=== PATIENT | female | born 1980 | race Caucasian/White ===

== ENCOUNTER 2017-06-24 08:26 | Emergency (ER) | payer OTHER ==
[2017-06-24] MEDS ORDERED: KETOROLAC 60 MG/2 ML VIAL IVP STA (08:34)
[2017-06-24] MEDS ORDERED: SODIUM CHLORIDE 0.9% 1,000 ML IV ONE ×2 (08:34→10:24)
--- NOTE | 2017-06-24 08:37 | ED Physician Documentation ---
PD HPI BACK PAIN - Stated complaint Stated Complaint: BACK PX - History obtained from History obtained from: Patient - History of Present Illness Timing - onset: Today Timing - duration: Hours Timing - details: Abrupt onset, Still present Pain level max: 9 Pain level now: 5 Location: Mid, Left Quality: Pain, Spasm, Sharp Associated symptoms: No: Fever, Weakness, Numbness Improves with: Other (nothing) Worsened by: Other (gas) Contributing factors: Other (nothing) Similar symptoms before: Has not had sx before Recently seen: Not recently seen - Additional information Additional information: 37-year-old female was in bed early this morning she got up to go to the bathroom when she developed severe sudden onset of left mid back pain. Pain was so severe she called 911. She has not had this pain previously and was not injured or having pain prior to this. Review of Systems Constitutional: denies: Fever Eyes: denies: Decreased vision Ears: denies: Ear pain Nose: denies: Congestion Throat: denies: Sore throat Cardiac: denies: Chest pain / pressure, Palpitations Respiratory: denies: Dyspnea, Cough GI: denies: Abdominal Pain, Nausea, Vomiting, Constipation, Diarrhea : denies: Dysuria Skin: denies: Rash Musculoskeletal: reports: Back pain. denies: Neck pain, Extremity pain PD PAST MEDICAL HISTORY - Present Medications Home Medications: Ambulatory Orders Medication Instructions Recorded Confirmed traMADol [Ultram] 50 - 100 mg PO Q6H PRN #20 tablet 06/24/17 - Allergies Allergies/Adverse Reactions: Allergies Allergy/AdvReac Type Severity Reaction Status Date / Time acetaminophen Allergy Respiratory Verified 06/24/17 08:37 [From Darvocet-N] hydrocodone Allergy Respiratory Verified 06/24/17 08:37 oxycodone Allergy Respiratory Verified 06/24/17 08:37 propoxyphene Allergy Respiratory Verified 06/24/17 08:37 [From Darvocet-N] PD ED PE NORMAL - Vitals Vital signs reviewed: Yes - General General: Alert and oriented X 3, Well developed/nourished, Other (has manufacturer agent tone of pain control ) - HEENT HEENT: Atraumatic, PERRL - Neck Neck: Supple, no meningeal sign - Cardiac Cardiac: RRR, No murmur - Respiratory Respiratory: No respiratory distress, Clear bilaterally - Abdomen Abdomen: Soft, Non tender - Back Back: No spinal TTP, Other (There is some mild point tenderness to the left paraspinous muscles at the L2 level. ) - Derm Derm: Normal color, Warm and dry, No rash - Extremities Extremities: No deformity, No tenderness to palpate, No edema - Neuro Neuro: No motor deficit, No sensory deficit Eye Opening: Spontaneous Motor: Obeys Commands Verbal: Oriented GCS Score: 15 - Psych Psych: Normal mood, Normal affect Results - Vitals Vitals: Vital Signs - 24 hr 06/24/17 06/24/17 08:34 11:47 Temperature 36.6 C 36.9 C Heart Rate 68 57 L Respiratory 14 18 Rate Blood Pressure 114/61 102/46 L O2 Saturation 100 99 Oxygen O2 Source Room air - Labs Labs: Laboratory Tests 06/24/17 06/24/17 06/24/17 09:00 09:00 10:54 WBC 7.7 RBC 4.36 Hgb 13.4 Hct 40.1 MCV 92.0 MCH 30.6 MCHC 33.3 RDW 12.7 Plt Count 198 MPV 9.5 Neut # 5.2 Lymph # 1.8 [place]ill # 0.5 Eos # 0.1 Baso # 0.0 Absolute Nucleated RBC 0.00 Nucleated RBC % 0.0 Sodium 140 Potassium 4.2 Chloride 104 Carbon Dioxide 27 Anion Gap 9.0 BUN 16 Creatinine 1.0 Estimated GFR (MDRD) 63 L Glucose 94 Calcium 9.3 Total Bilirubin 0.3 AST 21 ALT 20 Alkaline Phosphatase 54 Total Protein 7.8 Albumin 4.5 Globulin 3.3 Albumin/Globulin Ratio 1.4 Lipase 17 L Urine Color YELLOW Urine Clarity CLEAR Urine pH 6.5 Ur Specific [place] 1.015 Urine Protein NEGATIVE Urine Glucose (UA) NEGATIVE Urine Ketones NEGATIVE Urine Occult Blood LARGE H Urine Nitrite NEGATIVE Urine Bilirubin NEGATIVE Urine Urobilinogen 0.2 (NORMAL) Ur Leukocyte Esterase NEGATIVE Urine RBC 6-10 H Urine WBC 0-3 Ur Squamous Epith Cells FEW Squamous Urine Bacteria Rare Ur Microscopic Review INDICATED Urine Culture Comments NOT INDICATED Urine HCG, Qual NEGATIVE Procedures - Bedside sono Bedside sono by EMP: With use of bedside ultrasound the left flank is imaged and there is evidence of hydronephrosis to a left kidney which is sonographically nontender PD MEDICAL DECISION MAKING - ED course Complexity details: reviewed old records, reviewed results, re-evaluated patient , considered differential, d/w patient, d/w family ED course: 37-year-old female with acute onset of severe back pain is able to move around without exacerbating the pain and on bedside exam initially in the emergency department while she was having pain she did have evidence of hydronephrosis. She was administered saline and Toradol and when she got to the CT scan her pain was mostly better and there was no evidence of stone throughout the tract. She did have a solitary 1 mm stone in the left kidney. I suspect she may have passed a stone and she is having some waves of modulated pain. I discussed the findings with the patient and her and relate the expectation that she has resolution of this pain. We did find some blood in the urine. Departure - Departure Disposition: 01 Home, Self Care Clinical Impression: Left flank pain Condition: Stable Instructions: ED Flank Pain Uncertain Cause Follow-Up: KERVIN Santos [Provider Group] Prescriptions: traMADol [Ultram] 50 - 100 mg PO Q6H PRN #20 tablet PRN Reason: Pain Or Fever > 38c (100.4f) Comments: Today it appears from our findings that you have passed a kidney stone. This is all consistent with your history and physical examination. We did not find this stone on the CT scan today. We expect your symptoms to resolve completely. Discharge Date/Time: 06/24/17 12:08
[2017-06-24 09:14] LABS: BASOPHILS % (AUTO) 0.6 %; EOSINOPHILS # (AUTO) 0.1 10^3/uL (0.0-0.7); EOSINOPHILS % (AUTO) 1.1 %; HGB - HEMOGLOBIN 13.4 g/dL (12.0-16.0); LYMPHOCYTES # (AUTO) 1.8 10^3/uL (1.5-3.5); LYMPHOCYTES % (AUTO) 23.9 %; MEAN CORPUSCULAR HEMOGLOBIN 30.6 pg (27.0-31.0); MEAN CORPUSCULAR HGB CONC 33.3 g/dL (32.0-36.0); MEAN PLATELET VOLUME 9.5 fL (7.9-10.8); MONOCYTES # (AUTO) 0.5 10^3/uL (0.0-1.0); MONOCYTES % (AUTO) 5.9 %; NEUTROPHILS # (AUTO) 5.2 10^3/uL (1.5-6.6); NEUTROPHILS % (AUTO) 68.5 %; PLT - PLATELET COUNT 198 10^3/uL (130-450); RED BLOOD COUNT 4.36 10^6/uL (4.20-5.40); RED CELL DISTRIBUTION WIDTH 12.7 % (12.0-15.0); WHITE BLOOD COUNT 7.7 x10^3/uL (4.8-10.8)
[2017-06-24 09:26] LABS: ALBUMIN 4.5 g/dL (3.2-5.5); ALBUMIN/GLOBULIN RATIO 1.4 (1.0-2.2); BILIRUBIN,TOTAL 0.3 mg/dL (0.2-1.0); CALCIUM 9.3 mg/dL (8.5-10.3); TOTAL PROTEIN 7.8 g/dL (6.7-8.2)
--- NOTE | 2017-06-24 09:33 | CT Report ---
EXAM: CT ABDOMEN AND PELVIS (CT KUB) EXAM DATE: 06/24/2017 09:19 AM. CLINICAL HISTORY: Left flank pain . COMPARISONS: None. TECHNIQUE: Routine axial helical CT imaging was performed through the abdomen and pelvis without IV c ontrast. Reconstructions: Coronal and sagittal. In accordance with CT protocol optimization, one or more of the following dose reduction techniques w ere utilized for this exam: automated exposure control, adjustment of mA and/or KV based on patient s ize, or use of iterative reconstructive technique. FINDINGS: Lung Bases: Unremarkable. Right Kidney/Ureter: No stones, hydronephrosis, or hydroureter. No perinephric fat stranding. Left Kidney/Ureter: There is a 1 mm nonobstructing stone in the left kidney. No hydronephrosis or hyd roureter. Other Solid Organs: Noncontrast images of the solid organs are grossly unremarkable. Gallbladder/Bile Ducts: Unremarkable. Peritoneal Cavity: No free fluid, free air or hernandez adenopathy. Bowel is grossly unremarkable. Pelvic Organs: No bladder stones or wall thickening. Noncontrast images of the visualized pelvic orga ns are unremarkable. Vasculature: Unremarkable. Other: Multiple phleboliths in the pelvis. IMPRESSION: 1. There is a nonobstructing 1 mm stone in the inferior pole of the left kidney. No hydronephrosis or hydroureter. No stones in the bladder. 2. No bowel obstruction or inflammatory process associated with the bowel. [facility] Referring Provider Line: [phone] SITE ID: [id number]
--- NOTE | 2017-06-24 09:33 | CT Preliminary Report ---
Exam: CT ABDOMEN/PELVIS W/O IMPRESSION: 1. There is a nonobstructing 1 mm stone in the inferior pole of the left kidney. No hydronephrosis or hydroureter. No stones in the bladder. 2. No bowel obstruction or inflammatory process associated with the bowel. [facility] SITE ID: [id number]
[2017-06-24 11:03] LABS: BILIRUBIN,URINE NEGATIVE (NEGATIVE); GLUCOSE, URINE (UA) NEGATIVE (NEGATIVE); KETONES,URINE (UA) NEGATIVE (NEGATIVE); LEUKOCYTE ESTERASE, URINE NEGATIVE (NEGATIVE); NITRITE,URINE NEGATIVE (NEGATIVE); OCCULT BLOOD,URINE LARGE (NEGATIVE); PH,URINE 6.5 PH (5.0-7.5); PROTEIN,URINE NEGATIVE (NEGATIVE); UROBILINOGEN,URINE 0.2 (NORMAL) E.U./dL (NORMAL)
[2017-06-24 11:05] LABS: CLARITY,URINE CLEAR (CLEAR)
[2017-06-24 11:06] LABS: HCG UR QUAL NEGATIVE
[2017-06-24 11:15] LABS: BACTERIA,URINE Rare /HPF (None Seen); SQUAMOUS EPITHELIAL CELL,UR FEW Squamous (<= Few)
[2017-06-24 11:48] VITALS: BP 102/46
== END 2017-06-24 12:08 | disposition home or self-care (01) ==
LOC: ED 08:26
DX: R10.9 Unspecified abdominal pain (principal); N20.0 Calculus of kidney; N13.30 Unspecified hydronephrosis
CPT/HCPCS: 36415; 74176; 80053; 81001; 81003; 81025; 83690; 85025; 87086; 96361; 96374; 99284

== ENCOUNTER 2019-04-05 21:22 | Outpatient (CLI) | payer OTHER | END 2019-04-05 21:23 | disposition critical access hospital (66) | LOC: EMS 21:22 | PROVIDERS: ATTEND Surgery | DX: R40.20 Unspecified coma (principal) | CPT/HCPCS: A0425; A0427 ==

== ENCOUNTER 2019-04-05 21:41 | Emergency (ER) | payer OTHER ==
--- NOTE | 2019-04-05 21:54 | ED Physician Documentation ---
History of Present Illness - Stated complaint Stated Complaint: AMS, FELL FROM CHAIR - Additonal information Additional information: This is a 39-year-old female history of depression, who presents via EMS after an episode of syncope. Patient reportedly was using marijuana earlier in the night and she did drink some alcohol, she was sitting on a chair when she complained of being dizzy and she went unconscious. She was caught by a friend, and she did not hit her head. EMS was called and when they arrived she was breathing spontaneously, she has some spontaneous movement of her extremities, but would not follow commands. She is given 2 mg of Narcan with no effect. Review of Systems Unable to obtain: Unresponsive PD PAST MEDICAL HISTORY - Past Medical History Psych: Depression Musculoskeletal: Chronic back pain - Past Surgical History Past Surgical History: No - Present Medications Home Medications: Ambulatory Orders Medication Instructions Recorded Confirmed traMADol [Ultram] 50 - 100 mg PO Q6H PRN #20 tablet 06/24/17 - Allergies Allergies/Adverse Reactions: Allergies Allergy/AdvReac Type Severity Reaction Status Date / Time acetaminophen Allergy Respiratory Verified 04/05/19 21:57 [From Darvocet-N] hydrocodone Allergy Respiratory Verified 04/05/19 21:57 oxycodone Allergy Respiratory Verified 04/05/19 21:57 propoxyphene Allergy Respiratory Verified 04/05/19 21:57 [From Darvocet-N] - Living Situation Living Arrangement: reports: At home - Social History Does the pt smoke?: No Smoking Status: Never smoker Does the pt drink ETOH?: Yes ETOH Use: Beer Substance Use and Type: Marijuana - POLST Patient has POLST: No PD ED PE NORMAL - General General: Other (Unconscious, does not respond to questions.) - HEENT HEENT: Atraumatic, PERRL, Other (When I try to open patient's eyes, she closes them tightly and fights me.) - Neck Neck: Other (No step-offs, no signs of external trauma.) - Cardiac Cardiac: Other (Sinus tachycardia on the monitor, regular rhythm.) - Respiratory Respiratory: No respiratory distress, Clear bilaterally, Other (Breathing spontaneously without support, normal rate of breathing) - Abdomen Abdomen: Non tender, Non distended - Female Female : Other (Normal external genitalia, chaperoned by RN) - Back Back: Other (No signs of external trauma, no step-offs) - Derm Derm: Normal color, No rash - Extremities Extremities: No deformity - Neuro Neuro: Other (Patient is unconscious, her pupils are equal and reactive, and when I try to open her eyes she closes them tightly. With nailbed pressure she will withdraw in all 4 extremities, she does not follow commands. She is breathing spontaneously. There is non-extinguisgins clonus on the RLE, there were 10 beats of clonus in the left lower extremity. Babinski's are downgoing bilaterally.) Results - Vitals Vitals: Vital Signs - 24 hr 04/05/19 04/05/19 04/05/19 21:45 22:07 22:15 Temperature 36.3 C L Heart Rate 112 H 115 H 107 H Respiratory 13 19 12 Rate Blood Pressure 116/56 L 140/82 H 118/75 O2 Saturation 100 100 97 04/05/19 04/05/19 04/05/19 22:35 22:47 22:55 Temperature Heart Rate 99 103 H 93 Respiratory 16 16 14 Rate Blood Pressure 113/67 118/61 115/70 O2 Saturation 100 100 98 04/05/19 04/05/19 04/06/19 23:00 23:30 00:03 Temperature Heart Rate 87 86 74 Respiratory 16 16 14 Rate Blood Pressure 114/67 110/65 100/59 L O2 Saturation 100 99 97 04/06/19 04/06/19 04/06/19 00:58 01:23 01:30 Temperature Heart Rate 74 75 69 Respiratory 18 16 16 Rate Blood Pressure 111/72 101/59 L 102/56 L O2 Saturation 97 96 97 04/06/19 04/06/19 04/06/19 02:00 02:30 03:21 Temperature Heart Rate 69 73 72 Respiratory 15 15 16 Rate Blood Pressure 102/62 98/57 L 95/60 O2 Saturation 96 96 97 Oxygen O2 Source Room air - EKG (time done) 21:48 Other comments: Other comments (Rate 115, rhythm sinus tachycardia, baseline wander obscures fine detailed examination, there is no ST segment elevation, questionable slight lateral ST depressions) - Labs Labs: Laboratory Tests 04/05/19 04/05/19 04/05/19 21:53 21:53 21:53 WBC 7.6 RBC 3.88 L Hgb 12.0 Hct 37.4 MCV 96.4 MCH 30.9 MCHC 32.1 RDW 12.0 Plt Count 215 MPV 9.4 Neut # (Auto) 4.0 Lymph # (Auto) 2.6 Yell # (Auto) 0.8 Eos # (Auto) 0.1 Baso # (Auto) 0.0 Absolute Nucleated RBC 0.00 Nucleated RBC % 0.0 PT INR VBG pH VBG pCO2 VBG pO2 VBG HCO3 VBG Total CO2 VBG O2 Saturation VBG Base Excess Sodium 142 Potassium 3.0 L Chloride 107 Carbon Dioxide 25 Anion Gap 10.0 BUN 16 Creatinine 0.9 Estimated GFR (MDRD) 70 L Glucose 117 H Lactic Acid Calcium 8.4 L Total Bilirubin 0.4 AST 19 ALT 18 Alkaline Phosphatase 62 Troponin I High Sens Total Protein 6.6 L Albumin 3.7 Globulin 2.9 Albumin/Globulin Ratio 1.3 Lipase 28 TSH 1.48 Serum HCG, Qual Urine Color Urine Clarity Urine pH Ur Specific [place] Urine Protein Urine Glucose (UA) Urine Ketones Urine Occult Blood Urine Nitrite Urine Bilirubin Urine Urobilinogen Ur Leukocyte Esterase Ur Microscopic Review Urine Culture Comments Salicylates < 6.0 Urine Opiates Screen Ur Oxycodone Screen Urine Methadone Screen Ur Propoxyphene Screen Acetaminophen < 10 L Ur Barbiturates Screen Ur Tricyclics Screen Ur Phencyclidine Scrn Ur Amphetamine Screen U Methamphetamines Scrn U Benzodiazepines Scrn Urine Cocaine Screen U Cannabinoids Screen Ethyl Alcohol 21.1 04/05/19 04/05/19 04/05/19 21:53 21:53 21:53 WBC RBC Hgb Hct MCV MCH MCHC RDW Plt Count MPV Neut # (Auto) Lymph # (Auto) Yell # (Auto) Eos # (Auto) Baso # (Auto) Absolute Nucleated RBC Nucleated RBC % PT INR VBG pH VBG pCO2 VBG pO2 VBG HCO3 VBG Total CO2 VBG O2 Saturation VBG Base Excess Sodium Potassium Chloride Carbon Dioxide Anion Gap BUN Creatinine Estimated GFR (MDRD) Glucose Lactic Acid 2.8 H Calcium Total Bilirubin AST ALT Alkaline Phosphatase Troponin I High Sens < 2.3 L Total Protein Albumin Globulin Albumin/Globulin Ratio Lipase TSH Serum HCG, Qual NEGATIVE Urine Color Urine Clarity Urine pH Ur Specific [place] Urine Protein Urine Glucose (UA) Urine Ketones Urine Occult Blood Urine Nitrite Urine Bilirubin Urine Urobilinogen Ur Leukocyte Esterase Ur Microscopic Review Urine Culture Comments Salicylates Urine Opiates Screen Ur Oxycodone Screen Urine Methadone Screen Ur Propoxyphene Screen Acetaminophen Ur Barbiturates Screen Ur Tricyclics Screen Ur Phencyclidine Scrn Ur Amphetamine Screen U Methamphetamines Scrn U Benzodiazepines Scrn Urine Cocaine Screen U Cannabinoids Screen Ethyl Alcohol 04/05/19 04/05/19 04/05/19 21:53 21:53 22:15 WBC RBC Hgb Hct MCV MCH MCHC RDW Plt Count MPV Neut # (Auto) Lymph # (Auto) Yell # (Auto) Eos # (Auto) Baso # (Auto) Absolute Nucleated RBC Nucleated RBC % PT 12.1 INR 1.1 VBG pH 7.376 VBG pCO2 36.4 L VBG pO2 108.6 H VBG HCO3 20.9 L VBG Total CO2 22.0 L VBG O2 Saturation 97.7 H VBG Base Excess -3.8 L Sodium Potassium Chloride Carbon Dioxide Anion Gap BUN Creatinine Estimated GFR (MDRD) Glucose Lactic Acid Calcium Total Bilirubin AST ALT Alkaline Phosphatase Troponin I High Sens Total Protein Albumin Globulin Albumin/Globulin Ratio Lipase TSH Serum HCG, Qual Urine Color YELLOW Urine Clarity CLEAR Urine pH 5.5 Ur Specific [place] >=1.030 H Urine Protein NEGATIVE Urine Glucose (UA) NEGATIVE Urine Ketones NEGATIVE Urine Occult Blood TRACE-LYSE Urine Nitrite NEGATIVE Urine Bilirubin NEGATIVE Urine Urobilinogen 0.2 (NORMAL) Ur Leukocyte Esterase NEGATIVE Ur Microscopic Review NOT INDICATED Urine Culture Comments NOT INDICATED Salicylates Urine Opiates Screen NEGATIVE Ur Oxycodone Screen NEGATIVE Urine Methadone Screen NEGATIVE Ur Propoxyphene Screen NEGATIVE Acetaminophen Ur Barbiturates Screen NEGATIVE Ur Tricyclics Screen NEGATIVE Ur Phencyclidine Scrn NEGATIVE Ur Amphetamine Screen NEGATIVE U Methamphetamines Scrn NEGATIVE U Benzodiazepines Scrn NEGATIVE Urine Cocaine Screen NEGATIVE U Cannabinoids Screen POSITIVE H Ethyl Alcohol - Rads (name of study) CT head WO Radiology: Other CT cervical spine WO Radiology: Other (No acute fracture or subluxation) PD MEDICAL DECISION MAKING - ED course Complexity details: considered differential (Overdose, intracranial hemorrhage, seizure,Alcohol intoxication, electrolyte abnormality, concussion, syncope, hypovolemia,Dysrhythmia) ED course: On initial examination patient is unresponsive, she does react to nailbed pressure in all 4 extremities, and when I try to open her eyes she squeezes them shut and looks away. She is breathing normally, tachycardic with a normal blood pressure, and protecting her airway. 2mg of narcan given with no response. She was taken to CT and stat CT head and C-spine reveal no intracranial osseous abnormalities. EKG shows questionable slight lateral ST depressions, otherwise is unrevealing. CBC and INR unremarkable, VBG shows normal pH, chem panel shows mild hypokalemia, lactic acid is very mildly elevated at 2.8, troponin is negative, hCG is negative urine is negative for fraction and tox screen is positive only for cannabinoids. Ethanol level is very slightly elevated at 21.1. On serial exams patient's mental status continues to steadily improve, she opens her eyes spontaneously, she follows commands perfectly, and after around 20 minutes she is able to speak. She has no focal deficits. I performed a complete neurologic exam, with no abnormalities noted. Patient states that she feels tired, and slightly dizzy, but otherwise feels well. She does not remember what happened preceding her fall, she did smoke some marijuana, she does not think she used any other illicit drug, though she does not remember the time or what she did just preceding her fall. She denies any SI or ingestion. Patient has no chest pain, abdominal pain, shortness of breath, or other symptoms. Her dizziness resolved, and after multiple hours of observation the emergency department, she feels well and at her baseline. Her only complaint is chronic lower back pain which is unchanged from her baseline. Her states that she is acting like herself except slightly tired. She is able to ambulate independently with a narrow based gait, she has unremarkable vital signs, and is well-appearing. I discussed with patient that I am not sure what the cause of her symptoms is, though I do not see signs of dysrhythmia - and she has been in sinus tachycardia since EMS arrived and found her unconscious. Also no signs of intracranial abnormality. No tongue biting or urinary incontinence to suggest seizure, and her lactate was only mildly elevated, making this less likely. There was also no witnessed seizure activity. No chest pain or shortness of breath to suggest cardiopulmonary cause, and I would Expect pathology significant enough to cause her to go unresponsive would also cause some degree of hemodynamic changes well, which she has not had. However, given her initial confusion, and the diagnostic uncertainty I discussed admission for observation in the hospital. Patient declined this, given that she is feeling well she would like to go home. Her will be watching over her carefully. I also discussed that given the severity of her symptoms, they fact that they occured soon after using marijuana, and her very quick recovery, I am concerned that this may be a result of a substance such as spice that would not be obvious on our UDS. I recommend that she avoid all substances including alcohol and marijuana. I also discussed strict return precautions, she may return to the emergency department anytime, and particularly if she has any confusion, difficulty walking, weakness or numbness, fever, or any other concerning symptoms. Patient agreed this plan and was discharged in the care of her Departure - Departure Disposition: 01 Home, Self Care Clinical Impression: Syncope Qualifiers: Syncope type: unspecified Qualified Code(s): R55 - Syncope and collapse Altered mental status Qualifiers: Altered mental status type: unspecified Qualified Code(s): R41.82 - Altered mental status, unspecified Condition: Good Instructions: ED Fainting Unkn Cause Comments: You were seen today because you passed out and were unresponsive, this may be due to a substance or drug you used. The scans of your head and neck, and your lab work did not reveal an obvious cause of this. I am glad that you are feeling better, but if you have any more episodes of passing out, or any chest pain, shortness of breath, confusion, vision changes, weakness, difficulty walking, or any other concerning symptoms whatsoever, return to the emergency department immediately. Avoid doing activities that would be dangerous if you p assed out such as climbing at heights, swimming unsupervised, or driving until you are feeling completely better or you are cleared by medical professional. Discharge Date/Time: 04/06/19 03:20
[2019-04-05] MEDS ORDERED: SODIUM CHLORIDE 0.9% 1,000 ML IV ONE (21:55)
[2019-04-05] MEDS ORDERED: NALOXONE 0.4 MG/ML VIAL ONE ×2 (21:59→22:01)
[2019-04-05 22:00] LABS: BASOPHILS % (AUTO) 0.5 %; EOSINOPHILS # (AUTO) 0.1 10^3/uL (0.0-0.7); EOSINOPHILS % (AUTO) 1.4 %; LYMPHOCYTES # (AUTO) 2.6 10^3/uL (1.5-3.5); LYMPHOCYTES % (AUTO) 34.3 %; MEAN CORPUSCULAR HEMOGLOBIN 30.9 pg (27.0-31.0); MEAN CORPUSCULAR HGB CONC 32.1 g/dL (32.0-36.0); MEAN CORPUSCULAR VOLUME 96.4 fL (81.0-99.0); MEAN PLATELET VOLUME 9.4 fL (7.9-10.8); MONOCYTES # (AUTO) 0.8 10^3/uL (0.0-1.0); MONOCYTES % (AUTO) 10.5 %; NEUTROPHILS % (AUTO) 53.2 %; PLT - PLATELET COUNT 215 10^3/uL (130-450); RED BLOOD COUNT 3.88 10^6/uL (4.20-5.40); WHITE BLOOD COUNT 7.6 x10^3/uL (4.8-10.8)
[2019-04-05] MEDS ORDERED: ETOMIDATE 40 MG/20 ML VIAL IVP ONE (22:00)
[2019-04-05] MEDS ORDERED: SUCCINYLCHOLINE 200 MG/10 ML VIAL ONE (22:01)
[2019-04-05 22:02] LABS: VBG BASE EXCESS -3.8 mmol/L (-2 - +2); VBG PCO2 36.4 mmHg (41-51); VBG PH 7.376 (7.31-7.41); VBG PO2 108.6 mmHg (25-47)
[2019-04-05 22:06] LABS: INR 1.1 (0.8-1.2); PT - PROTHROMBIN TIME 12.1 secs (9.9-12.6)
[2019-04-05 22:16] LABS: ACETAMINOPHEN < 10 ug/mL (10-30); ALBUMIN 3.7 g/dL (3.2-5.5); ALBUMIN/GLOBULIN RATIO 1.3 (1.0-2.2); ALKALINE PHOSPHATASE 62 IU/L (42-121); ALT ALANINE AMINOTRANSFERASE 18 IU/L (10-60); AST ASPARTATE AMINOTRANSFERASE 19 IU/L (10-42); BILIRUBIN,TOTAL 0.4 mg/dL (0.2-1.0); BUN - BLOOD UREA NITROGEN 16 mg/dL (6-20); CALCIUM 8.4 mg/dL (8.5-10.3); CARBON DIOXIDE - CO2 25 mmol/L (21-32); CHLORIDE 107 mmol/L (101-111); CREATININE 0.9 mg/dL (0.4-1.0); GFR - MDRD 70 (>89); GLUCOSE 117 mg/dL (70-100); LIPASE 28 U/L (22-51); SALICYLATE < 6.0 mg/dL; SODIUM 142 mmol/L (135-145); TOTAL PROTEIN 6.6 g/dL (6.7-8.2)
--- NOTE | 2019-04-05 22:18 | CT Report ---
Reason: unconcscious, fall Procedure Date: 04/05/2019 Accession Number: [id number] / [id number] Procedure: CT - HEAD WO CPT Code: FULL RESULT: EXAM: CT HEAD EXAM DATE: 04/05/2019 10:07 PM. CLINICAL HISTORY: Unconscious, fall. COMPARISON: None. TECHNIQUE: Multiaxial CT images were obtained from the foramen magnum to the vertex. Reformats: Sagittal and coronal. IV contrast: None. In accordance with CT protocol optimization, one or more of the following dose reduction techniques were utilized for this exam: automated exposure control, adjustment of mA and/or KV based on patient size, or use of iterative reconstructive technique. FINDINGS: Parenchyma: No intraparenchymal hemorrhage. No evidence of mass, midline shift, or CT findings of infarction. Grant-white differentiation is distinct. Extraaxial Spaces: Normal for age. No subdural or epidural collections identified. Ventricles: Normal in size and position. Sinuses and Orbits: Imaged paranasal sinuses, orbits, and mastoids show no significant abnormality. Bones: No evidence of fracture or calvarial defect. Other: None. IMPRESSION: No acute or focal intracranial abnormality. [facility]
--- NOTE | 2019-04-05 22:20 | CT Report ---
Reason: Unconscious, fall Procedure Date: 04/05/2019 Accession Number: [id number] / [id number] Procedure: CT - CERVICAL SPINE WO CPT Code: FULL RESULT: EXAM: CT CERVICAL SPINE WITHOUT CONTRAST DATE: 04/05/2019 10:07 PM. HISTORY: Unconscious, fall. COMPARISONS: None. TECHNIQUE: Thin-section axial images were acquired of the cervical spine without contrast. Post-processing: Coronal and sagittal reformats. Other: None. In accordance with CT protocol optimization, one or more of the following dose reduction techniques were utilized for this exam: automated exposure control, adjustment of mA and/or KV based on patient size, or use of iterative reconstructive technique. FINDINGS: Alignment: No scoliosis or spondylolisthesis. Bones: No fracture or bone lesion. Interspace Levels/Facets: C1-C2: Unremarkable. C2-C3: Unremarkable. C3-C4: Unremarkable. C4-C5: Unremarkable. C5-C6: Unremarkable. C6-C7: Unremarkable. C7-T1: Unremarkable. Musculature: Normal. No fatty atrophy. Other: The paravertebral and prevertebral soft tissues are unremarkable. The lung apices are clear. IMPRESSION: No fracture identified in the cervical spine. [facility]
[2019-04-05 22:25] LABS: MUDS CUTOFF CONCENTRATIONS CUTOFF CONC BELOW:
[2019-04-05 22:27] LABS: BILIRUBIN,URINE NEGATIVE (NEGATIVE); GLUCOSE, URINE (UA) NEGATIVE (NEGATIVE); KETONES,URINE (UA) NEGATIVE (NEGATIVE); LEUKOCYTE ESTERASE, URINE NEGATIVE (NEGATIVE); NITRITE,URINE NEGATIVE (NEGATIVE); OCCULT BLOOD,URINE TRACE-LYSE (NEGATIVE); PH,URINE 5.5 PH (5.0-7.5); PROTEIN,URINE NEGATIVE (NEGATIVE); UROBILINOGEN,URINE 0.2 (NORMAL) E.U./dL (NORMAL)
[2019-04-05 22:28] LABS: CLARITY,URINE CLEAR (CLEAR)
[2019-04-05 22:34] LABS: HCG,QUALITATIVE BLOOD NEGATIVE
--- NOTE | 2019-04-05 22:35 | XRAY Report ---
Reason: dyspnea Procedure Date: 04/05/2019 Accession Number: [id number] / [id number] Procedure: XR - Chest 1 View X-Ray CPT Code: 21650 FULL RESULT: EXAM: CHEST RADIOGRAPHY EXAM DATE: 04/05/2019 10:27 PM. CLINICAL HISTORY: Dyspnea. COMPARISON: None. TECHNIQUE: 1 view. FINDINGS: Lungs/Pleura: No focal opacities evident. No pleural effusion. No pneumothorax. Mediastinum: Within exam limitations, the cardiomediastinal contour is normal. Other: None. IMPRESSION: No acute intrathoracic plain film abnormality. [facility]
[2019-04-05] MEDS ORDERED: NALOXONE 0.4 MG/ML VIAL IVP STA (22:39)
[2019-04-05 22:46] LABS: AMPHETAMINE SCREEN,URINE NEGATIVE (NEGATIVE); BENZODIAZEPINES SCREEN, URINE NEGATIVE (NEGATIVE); COCAINE SCREEN URINE NEGATIVE (NEGATIVE); METHADONE SCREEN, URINE NEGATIVE (NEGATIVE); METHAMPHETAMINES SCREEN, URINE NEGATIVE (NEGATIVE); OPIATE SCREEN, URINE NEGATIVE (NEGATIVE); OXYCODONE SCREEN, URINE NEGATIVE (NEGATIVE); PROPOXYPHENE SCREEN, URINE NEGATIVE (NEGATIVE); TRICYCLIC ANTIDEPRESSANT,URINE NEGATIVE (NEGATIVE)
[2019-04-06 03:22] VITALS: BP 95/60
== END 2019-04-06 03:20 | disposition home or self-care (01) ==
LOC: EDUNIT# → ED 21:41
DX: R55 Syncope and collapse (principal); R41.82 Altered mental status, unspecified; R42 Dizziness and giddiness; R00.0 Tachycardia, unspecified; F12.90 Cannabis use, unspecified, uncomplicated; E87.6 Hypokalemia; M54.5 Low back pain; G89.29 Other chronic pain
CPT/HCPCS: 36415; 70450; 71045; 72125; 80053; 80306; 80307; 80320; 80329; 81001; 81003; 82803; 83605; 83690; 83930; 84443; 84484; 84703; 85025; 85610; 87086; 93005; 96361; 96374; 99281